=== PATIENT | female | born 1950 | race Caucasian/White ===

== ENCOUNTER 2016-06-07 16:08 | Inpatient (IN) | payer OTHER ==
[~2016-06-07] VITALS: Ht 157.5 cm; Wt 61.2 kg
--- NOTE | 2016-06-07 16:31 | NUR ---
PT ASSIGNED TO [facility]
[2016-06-07 16:32] LABS: BASOPHILS % (AUTO) 0.3 % (0.0-2.0); EOSINOPHILS # (AUTO) 0.1 /CMM (0.0-0.7); EOSINOPHILS % (AUTO) 1.3 % (0.0-6.0); HEMATOCRIT 36 % (33-45); HEMOGLOBIN 12.4 g/dL (11.5-14.8); LYMPHOCYTES # (AUTO) 2.6 /CMM (0.8-4.8); LYMPHOCYTES % (AUTO) 32.4 % (20.0-44.0); MEAN CORPUSCULAR HEMOGLOBIN 34 PG (26.0-33.0); MEAN CORPUSCULAR HGB CONC 34 g/dl (31.0-36.0); MEAN CORPUSCULAR VOLUME 98 fL (82-100); MONOCYTES # (AUTO) 0.7 /CMM (0.1-1.30); MONOCYTES % (AUTO) 8.6 % (2.0-12.0); NEUTROPHILS # (AUTO) 4.6 /CMM (1.8-8.9); NEUTROPHILS % (AUTO) 57.4 % (43.0-81.0); PLATELET COUNT (AUTO) 261 /CMM (150-450); RDW COEFFICIENT OF VARIATION 13.1 (11.5-15.0); RED BLOOD CELL COUNT(AUTO) 3.72 MIL/uL (4.0-5.2)
[2016-06-07 16:35] LABS: CALCIUM, SERUM 8.6 mg/dL (8.5-10.1); CARBON DIOXIDE 22 mmol/L (21-32); CHLORIDE 104 mmol/L (98-107); GFR 56 mL/min (>60); GLUCOSE 91 mg/dL (74-106); POTASSIUM 3.8 mmol/L (3.5-5.1); SODIUM SERUM 133 mmol/L (136-145); UREA NITROGEN, BLOOD 13 mg/dL (7-18)
--- NOTE | 2016-06-07 16:40 | NUR ---
PT LINNEA MATUTE FOR MEDICAL CLEARANCE FOR PSYCH ADMISSION. UPON ASSESSMENT, PT IS NOTED WITH BRUISING TO L SIDE OF FACE S/P GLF THURSDAY FOR WHICH THE PT DID NOT RECEIVE MEDICAL ATTENTION. SPEECH SLIGHTLY DELAYED, PT LETHARGIC BUT EASILY AROUSABLE TO VERBAL STIMULUS, AND SMILE UNEVEN. NO OTHER NEURO DEFICITS NOTED. MARKETING OPERATIONS MANAGER STRENGTH EQUAL AND STRONG. SPEECH CLEAR. NO DIFFICULTY SWALLOWING. DENIES VISUAL CHANGES. REPORTS MIGRAINE, WHICH IS CHRONIC. DENIES SI AT THIS TIME. ON 5150 HOLD FOR DTS. A/OX4. COOPERATIVE WITH STAFF INSTRUCTION. NOTIFIED OF EXAM FINDINGS. IN ER BED 12.
[2016-06-07 16:41] LABS: ALANINE AMINOTRANSFERASE 19 U/L (12-78); ALBUMIN 3.3 g/dL (3.4-5.0); ALCOHOL, BLOOD < 3 mg/dL (0-0); ALKALINE PHOSPHATASE 118 U/L (46-116); ASPARTATE AMINOTRANSFERASE 26 U/L (15-37); BILIRUBIN,DIRECT 0.1 mg/dL (0.0-0.2); BILIRUBIN,TOTAL 0.4 mg/dL (0.2-1.0); SALICYLATE 4.6 mg/dL (2.8-20.0); TOTAL PROTEIN, SERUM 7.1 g/dL (6.4-8.2)
[2016-06-07 16:42] LABS: ACETAMINOPHEN 0 ug/ml (10-30)
[2016-06-07] MEDS ORDERED: BUDE3CAP8 PO (16:48)
[2016-06-07] MEDS ORDERED: FLUO-120 PO (16:48)
[2016-06-07] MEDS ORDERED: FOLI1TAB16 PO (16:48)
[2016-06-07] MEDS ORDERED: TOPI-37 PO (16:48)
[2016-06-07] MEDS ORDERED: MIRT15TA7 PO (16:48)
[2016-06-07] MEDS ORDERED: DULO60CA45 PO (16:48)
[2016-06-07] MEDS ORDERED: CODE1CAP21 PO (16:48)
[2016-06-07] MEDS ORDERED: ALEN70TA45 PO (16:48)
[2016-06-07] MEDS ORDERED: CYAN10006 IM (16:48)
[2016-06-07] MEDS ORDERED: ZOLP10TA2 PO (16:48)
[2016-06-07] MEDS ORDERED: PROP80TA4 PO (16:48)
--- NOTE | 2016-06-07 17:12 | NUR ---
PT AMBULATED TO RESTROOM WITH SLOW UNSTEADY GAIT, ABLE TO AMBULATE SAFELY WITH ONE ASSIST.
--- NOTE | 2016-06-07 17:25 | NUR ---
Patient is resting comfortably in bed with eyes closed. Easily aroused. VSS
[2016-06-07 17:31] LABS: APPEARANCE,URINE Clear (CLEAR); BILIRUBIN,URINE Negative (NEGATIVE); BLOOD, URINE Small Ery/uL (NEGATIVE); COLOR,URINE Yellow (YELLOW); KETONES,URINE 15 (NEGATIVE); LEUKOCYTE ESTERASE ,URINE Small (NEGATIVE); NITRITE, URINE Negative (NEGATIVE); PROTEIN,URINE Negative (NEGATIVE); UGLUCOSE Negative (NEGATIVE); UROBILINOGEN,URINE 0.2 EU/dL (0.2)
[2016-06-07 17:43] LABS: RBC,URINE 0-2 /HPF (0-2)
[2016-06-07 17:44] LABS: ADD URINE CULTURE YES; BACTERIA,URINE Few /HPF (None Seen)
[2016-06-07 17:45] LABS: CANNABINOID, URINE NEGATIVE (NEGATIVE); PHENCYCLIDINE SCREEN,URINE NEGATIVE (NEGATIVE); SQUAMOUS EPITHELIAL CELL,UR None Seen /HPF (None Seen)
--- NOTE | 2016-06-07 17:50 | NUR ---
CALLED DR HASSAN FOR CONSULT
[2016-06-07 18:19] LABS: PROTHROMBIN TIME 10.4 SECS (9.5-12.7)
--- NOTE | 2016-06-07 18:36 | NUR ---
REPORT CALLED TO MELI MARC FOR ADMISSION
--- NOTE | 2016-06-07 19:00 | NUR ---
Patient is resting comfortably in bed with eyes closed. Easily aroused. VSS
--- NOTE | 2016-06-07 19:15 | NUR ---
PT TRANSPORTED TO [facility] 218 IN STABLE CONDITION VIA WHEELCHAIR
[2016-06-07] MEDS ORDERED: MAG HYDROX/AL HYDROX/SIMETH 30 ML UDC PO PRN (20:00)
[2016-06-07] MEDS ORDERED: ACETAMINOPHEN 325 MG TABLET PO PRN (20:00)
[2016-06-07] MEDS ORDERED: clonazePAM 0.5 MG TABLET PO PRN (20:00)
[2016-06-07] MEDS ORDERED: MAGNESIUM HYDROXIDE 30 ML UDC PO PRN (20:00)
--- NOTE | 2016-06-07 20:00 | NUR ---
GPS SHAREHOLDER NOTES ADMITTED THIS 65 YEAR OLD FEMALE ON 5150 HOLD FOR DANGER TO SELF. PATIENT CAME FROM ER. PER HOLD, PATIENT WAS DEPRESSED, HOPELESS, POOR SLEEP, NOT EATING. PT STATED SHE WILL OVERDOSE ON PILLS. ON FACE TO FACE PATIENT IS ALERT AND ORIENTED X 3, DEPRESSED, ANXIOUS. VITAL SIGNS CHECKED AND RECORDED. V/S STABLE. PT ADMITTED UNDER CARE OF DR. SALAZAR FOR PSYCH AND DR. GUTIERREZ FOR MEDICAL. SKIN/ BODY ASSESSMENT DONE. NOTED BOTH KNEES REDNESS, NECK, FACE, FOREARM BRUISE. PICTURE TAKEN. PT REFUSED TO SIGN CONSENT FORMS. CHECK FOR CONTRABAND ITEMS. CONTRABAND FOUND AND PUT IN SAFE LOCKED CABINET. PATIENT HAS PSYCH HISTORY OF DEPRESSION AND MEDICAL HISTORY OF HTN. BED IN LOW AND LOCKED POSITION, SIDERAILS UPX2, BED ALARM ON, CALL PERDOMO WITHIN REACH, WILL CONTINUE TO MONITOR FOR SAFETY AND BEHAVIOR [id number].
[2016-06-07] MEDS ORDERED: BUTALBITAL/ASPIRIN/CAFFEINE 1 CAP CAPSULE PO PRN (22:00)
[2016-06-08 01:07] VITALS: BP 113/75
[2016-06-08 07:02] LABS: BASOPHILS % (AUTO) 0.4 % (0.0-2.0); EOSINOPHILS # (AUTO) 0.1 /CMM (0.0-0.7); EOSINOPHILS % (AUTO) 2.1 % (0.0-6.0); HEMATOCRIT 36 % (33-45); LYMPHOCYTES # (AUTO) 1.9 /CMM (0.8-4.8); LYMPHOCYTES % (AUTO) 29.8 % (20.0-44.0); MEAN CORPUSCULAR HEMOGLOBIN 32 PG (26.0-33.0); MEAN CORPUSCULAR HGB CONC 33 g/dl (31.0-36.0); MEAN CORPUSCULAR VOLUME 97 fL (82-100); MONOCYTES # (AUTO) 0.5 /CMM (0.1-1.30); MONOCYTES % (AUTO) 8.4 % (2.0-12.0); NEUTROPHILS # (AUTO) 3.7 /CMM (1.8-8.9); NEUTROPHILS % (AUTO) 59.3 % (43.0-81.0); PLATELET COUNT (AUTO) 277 /CMM (150-450); RED BLOOD CELL COUNT(AUTO) 3.72 MIL/uL (4.0-5.2); WHITE BLOOD COUNT (AUTO) 6.3 K/uL (4.3-11.0)
[2016-06-08 07:28] LABS: ALBUMIN 3.1 g/dL (3.4-5.0); BILIRUBIN,TOTAL 0.5 mg/dL (0.2-1.0); CALCIUM, SERUM 8.1 mg/dL (8.5-10.1); CREATININE 0.8 mg/dL (0.6-1.3); POTASSIUM 3.8 mmol/L (3.5-5.1); TOTAL PROTEIN, SERUM 6.8 g/dL (6.4-8.2)
[2016-06-08 08:00] VITALS: BP 108/68
[2016-06-08] MEDS: PROPRANOLOL HCL 40 MG TABLET PO SCH ×2 (09:00→21:00)
[2016-06-08] MEDS ORDERED: CYANOCOBALAMIN 1,000 MCG/ML VIAL IM SCH (09:00)
[2016-06-08] MEDS: TOPIRAMATE 100 MG TABLET PO SCH ×3 (11:52→16:34)
[2016-06-08] MEDS: BUDESONIDE 3 MG CAP.SR.24H PO SCH (11:52)
[2016-06-08] MEDS: FOLIC ACID 1 MG TABLET PO SCH ×2 (11:52→16:34)
--- NOTE | 2016-06-08 11:54 | NUR ---
GPS/RN INDERAL NOT GIVEN D/T LOW BP. AGA WINDOW/DISTRIBUTION CLERK MADE AWARE,.
[2016-06-08] MEDS ORDERED: DULOXETINE HCL 30 MG CAPSULE.DR PO SCH (12:50)
[2016-06-08] MEDS ORDERED: DIVALPROEX SODIUM 500 MG TABLET.DR PO SCH (13:00)
[2016-06-08] MEDS: FLUOXETINE HCL 20 MG CAPSULE PO SCH (13:49)
[2016-06-08] MEDS: CEPHALEXIN MONOHYDRATE 250 MG CAPSULE PO SCH (13:49)
[2016-06-08] MEDS: ARIPIPRAZOLE 5 MG TABLET PO SCH (13:49)
[2016-06-08 16:00] VITALS: BP 107/69
[2016-06-08 20:13] VITALS: BP 110/62
[2016-06-08] MEDS: TEMAZEPAM 7.5 MG CAPSULE PO PRN (21:59)
--- NOTE | 2016-06-09 01:01 | NUR ---
Pt has been quite passive, withdrawn, hesitant to talk, & with flat affect but compliant/redirectable.
[2016-06-09] MEDS ORDERED: ALENDRONATE 70 MG TABLET PO SCH (07:30)
[2016-06-09 08:00] VITALS: BP 126/76
[2016-06-09] MEDS: FOLIC ACID 1 MG TABLET PO SCH ×2 (08:15→17:19)
[2016-06-09] MEDS: ARIPIPRAZOLE 5 MG TABLET PO SCH (08:16)
[2016-06-09] MEDS: FLUOXETINE HCL 20 MG CAPSULE PO SCH (08:16)
[2016-06-09] MEDS: CEPHALEXIN MONOHYDRATE 250 MG CAPSULE PO SCH ×2 (08:16→17:19)
[2016-06-09] MEDS: PROPRANOLOL HCL 40 MG TABLET PO SCH ×2 (08:17→21:34)
[2016-06-09] MEDS: TOPIRAMATE 100 MG TABLET PO SCH ×3 (08:48→17:19)
[2016-06-09] MEDS: BUDESONIDE 3 MG CAP.SR.24H PO SCH (08:48)
--- NOTE | 2016-06-09 14:49 | NUR ---
Initial Discharge Note: Per patient, she [facility] [place] [address], and wants to return home. SW spoke to patient's sister Steph Stallworth ([phone]) who stated that patient can return home when she is ready for discharge. manufacturing worker will follow-up with MD, family, and patient and will help form a safe and proper discharge.
[2016-06-09 16:00] VITALS: BP 143/77
[2016-06-09 20:00] VITALS: BP 142/78
[2016-06-09 20:05] VITALS: BP 142/78
[2016-06-09] MEDS: TEMAZEPAM 7.5 MG CAPSULE PO PRN (22:39)
[2016-06-10] MEDS: FLUOXETINE HCL 20 MG CAPSULE PO SCH (08:03)
[2016-06-10] MEDS: CEPHALEXIN MONOHYDRATE 250 MG CAPSULE PO SCH ×2 (08:04→16:29)
[2016-06-10] MEDS: TOPIRAMATE 100 MG TABLET PO SCH ×3 (08:04→16:29)
[2016-06-10] MEDS: ARIPIPRAZOLE 5 MG TABLET PO SCH (08:04)
[2016-06-10] MEDS: FOLIC ACID 1 MG TABLET PO SCH ×2 (08:04→16:29)
[2016-06-10] MEDS: BUDESONIDE 3 MG CAP.SR.24H PO SCH (08:30)
[2016-06-10] MEDS: PROPRANOLOL HCL 40 MG TABLET PO SCH ×2 (08:30→21:02)
[2016-06-10 08:50] VITALS: BP 125/78
[2016-06-10] MEDS ORDERED: ARIPIPRAZOLE 5 MG TABLET PO SCH (09:00)
--- NOTE | 2016-06-10 09:09 | NUR ---
Psychosocial assessment was reviewed and I concur with the information provided. No other changes are necessary. Catarino Roberts, CENTER HUMAN RESOURCES MANAGER [id number] Addendum: 06/10/16 at 0914 by CATARINO ROBERTS SW Amended: Links added.
--- NOTE | 2016-06-10 13:30 | NUR ---
social worker palliative care informed Satinder from intake that we have not received a call from any C/M with fax # from [employer] [facility] [employer], in which to provide clinicals for authorization. social worker palliative care attempted to contact [facility] [employer] [phone] but was unsuccessful. social worker palliative care will follow-up.
--- NOTE | 2016-06-10 15:22 | NUR ---
UR Update: precision printing worker faxed clinical's to Nena (phone: [phone]/fax: [phone]) disability case manager from [employer]. precision printing worker will follow-up. AUT# [id number]
[2016-06-10 16:18] VITALS: BP 117/81
[2016-06-10 21:59] VITALS: BP 122/76
[2016-06-10] MEDS: TEMAZEPAM 7.5 MG CAPSULE PO PRN (21:59)
--- NOTE | 2016-06-10 22:03 | NUR ---
GPS/RN NOTE: PATIENT C/O INSOMNIA, TEMAZEPAM 7.5 MG CAP 1 PO GIVEN.
[2016-06-11 08:00] VITALS: BP 145/76
[2016-06-11] MEDS: TOPIRAMATE 100 MG TABLET PO SCH ×3 (08:19→17:56)
[2016-06-11] MEDS: ARIPIPRAZOLE 5 MG TABLET PO SCH ×2 (08:19→09:00)
[2016-06-11] MEDS: CEPHALEXIN MONOHYDRATE 250 MG CAPSULE PO SCH ×2 (08:19→17:56)
[2016-06-11] MEDS: BUDESONIDE 3 MG CAP.SR.24H PO SCH (08:20)
[2016-06-11] MEDS: PROPRANOLOL HCL 40 MG TABLET PO SCH ×2 (08:20→20:56)
[2016-06-11] MEDS: FOLIC ACID 1 MG TABLET PO SCH ×2 (08:21→17:56)
[2016-06-11] MEDS: FLUOXETINE HCL 20 MG CAPSULE PO SCH (08:21)
--- NOTE | 2016-06-11 09:00 | NUR ---
patient refused Abilify po as prescribed, md aware of. continued monitoring.
--- NOTE | 2016-06-11 09:02 | NUR ---
UR Update: farmworker pullet farm faxed clinical's to Jessica (phone: [phone]/fax: [phone]) major case detective from [employer]. farmworker pullet farm will follow-up. AUT# [id number]
--- NOTE | 2016-06-11 15:06 | NUR ---
UR update: layup worker spoke to Jessica (phone: [phone]/fax: [phone]) supportive employment case manager from [employer]. who approved through June 13, 2016 with next review due on the . layup worker will follow-up. AUT# [id number]
[2016-06-11 16:00] VITALS: BP 124/74
[2016-06-11 20:22] VITALS: BP 136/73
[2016-06-12] MEDS: TEMAZEPAM 7.5 MG CAPSULE PO PRN ×2 (00:06→22:09)
[2016-06-12 08:00] VITALS: BP 120/74
[2016-06-12] MEDS: CEPHALEXIN MONOHYDRATE 250 MG CAPSULE PO SCH ×2 (08:02→17:04)
[2016-06-12] MEDS: FLUOXETINE HCL 20 MG CAPSULE PO SCH (08:02)
[2016-06-12] MEDS: FOLIC ACID 1 MG TABLET PO SCH ×2 (08:02→17:04)
[2016-06-12] MEDS: PROPRANOLOL HCL 40 MG TABLET PO SCH ×2 (08:03→21:07)
[2016-06-12] MEDS: BUDESONIDE 3 MG CAP.SR.24H PO SCH (08:03)
[2016-06-12] MEDS: TOPIRAMATE 100 MG TABLET PO SCH ×3 (08:03→17:04)
[2016-06-12] MEDS: ARIPIPRAZOLE 5 MG TABLET PO SCH ×2 (08:04→09:00)
[2016-06-12 16:20] VITALS: BP 106/72
[2016-06-12 20:00] VITALS: BP 124/80
[2016-06-13 08:00] VITALS: BP 119/66
[2016-06-13 08:23] VITALS: BP 119/66
[2016-06-13] MEDS: TOPIRAMATE 100 MG TABLET PO SCH ×2 (08:23→12:32)
[2016-06-13] MEDS: BUDESONIDE 3 MG CAP.SR.24H PO SCH (08:23)
[2016-06-13] MEDS: FOLIC ACID 1 MG TABLET PO SCH (08:23)
[2016-06-13] MEDS: CEPHALEXIN MONOHYDRATE 250 MG CAPSULE PO SCH (08:23)
[2016-06-13] MEDS: PROPRANOLOL HCL 40 MG TABLET PO SCH (08:23)
[2016-06-13] MEDS: FLUOXETINE HCL 20 MG CAPSULE PO SCH (08:23)
[2016-06-13] MEDS: ARIPIPRAZOLE 5 MG TABLET PO SCH (09:00)
--- NOTE | 2016-06-13 09:02 | NUR ---
DR. SALAZAR GAVE AN ORDER TO D/C HOLD AND D/C HOME. PT. WITHOUT DISTRESS, DENIES SUICIDAL AND HOMICIDAL. TO FOLLOW UP WITH PSYCH AND MEDICAL DOCTORS.
--- NOTE | 2016-06-13 13:54 | NUR ---
DR. CHURCH MADE AWARE OF THE DISCHARGE AND SAID OK FOR DISCHARGE. SHE WROTE A PRESCRIPTIONS AND RECONCILED THE MEDS. PT. SIGNED THE DISCHARGE PAPERS AND PICTURES TAKEN FOR THE SKIN ISSUES.
--- NOTE | 2016-06-13 14:50 | NUR ---
PT. LEFT THE UNIT WITH BELONGINGS AND PICKED UP BY HER DAUGHTER BREANNA YAP AND HER MOTHER AMEE ROSA. PT. INSTRUCTED ON MEDS TO CONTINUE AT HOME AND VERBALIZES UNDERSTANDING AND ADVISED TO MAKE A FOLLOW UP HER PSYCHIATRIST AND MEDICAL DOCTORS AND AGREED. LEFT VIA A WHEELCHAIR AND WHEELED BY STAFF TO THE LOBBY, WITHOUT DISTRESS AND ON STABLE CONDITION. V/S TAKEN: BP131/77, AZ 73, RR 18, OXYGEN SAT 99% AND TEMP. 97.7.
--- NOTE | 2016-06-13 16:14 | NUR ---
Patient was discharged back [place] [address] ([phone]) Patient's sister Steph Stallworth ([phone]) was informed and picked her up via private vehicle. Patient and patient's sister were both agreeable with the discharge plan. Patient's mood and affect were normal and appropriate upon discharge. Patient denied suicidal and homicidal ideations upon discharge. Patient will see Dr. Murdock ([phone]) [address] [place] [address] Thursday June 16, 2016 at 11:45am to discuss concerns with prescription overuse. Facilitated info to IDT team who are in agreement with discharge arrangement. The multidisciplinary exitcare form was done, printed, signed, and given to the patient.
--- NOTE | 2016-06-16 10:46 | NUR ---
UR Update: slab worker faxed discharge note to Jessica (phone: [phone]/fax: [phone]) telehealth case manager from [employer]. slab worker will follow-up. AUT# [id number]
== END 2016-06-13 14:50 | disposition home or self-care (01) | DRG 885 ==
LOC: ER 16:19 → GPS 18:51
PROVIDERS: ADMIT Family Medicine; ATTEND Psychiatry & Neurology Psychiatry
DX: F33.2 Major depressive disorder, recurrent severe without psychotic features (principal); S06.5X0A Traumatic subdural hemorrhage without loss of consciousness, initial encounter; N39.0 Urinary tract infection, site not specified; W18.30XA Fall on same level, unspecified, initial encounter; Y93.9 Activity, unspecified; Y92.008 Other place in unspecified non-institutional (private) residence as the place of occurrence of the external cause; M81.0 Age-related osteoporosis without current pathological fracture; F17.210 Nicotine dependence, cigarettes, uncomplicated; F29 Unspecified psychosis not due to a substance or known physiological condition; G43.909 Migraine, unspecified, not intractable, without status migrainosus; I10 Essential (primary) hypertension; Z79.899 Other long term (current) drug therapy; H05.222 Edema of left orbit; K58.9 Irritable bowel syndrome, unspecified; B96.89 Other specified bacterial agents as the cause of diseases classified elsewhere; K08.89 Other specified disorders of teeth and supporting structures
CPT/HCPCS: 36415; 70450-TC; 70486-TC; 80048-TC; 80053-TC; 80061-TC; 80076-TC; 80305; 81000-TC; 85025-TC; 85730-TC; 87081-TC; 87086-TC; 97001-TC; A4606; G0480; G6039-TC; J3420; Z7610